=== PATIENT | female | born 1995 | race Caucasian/White ===

== ENCOUNTER 2017-02-28 13:02 | Emergency (ER) | payer MEDICAID, OTHER ==
[~2017-02-28] VITALS: Ht 157.5 cm; Wt 56.3 kg
[2017-02-28 13:26] VITALS: BP 113/65
--- NOTE | 2017-02-28 14:15 | NUR ---
Patient to bed 08.
--- NOTE | 2017-02-28 14:19 | NUR ---
Dr. Kohli evaluating patient at bedside.
--- NOTE | 2017-02-28 14:29 | NUR ---
PATIENT PRESENTS TO ED WITH c/o nasal congestion with sinus pain and throat discomfort;rhinorrhea x 4 days;DENIES N/V/D; SKIN IS PINK/WARM/DRY; AAOX4 WITH EVEN AND STEADY GAIT; PT DENIES ANY FEVER, CP, SOB, OR COUGH AT THIS TIME; PATIENT STATES PAIN OF 0/10 AT THIS TIME; VSS; PATIENT POSITIONED FOR COMFORT; HOB ELEVATED; BEDRAILS UP X2; BED DOWN.
[2017-02-28 14:35] VITALS: BP 121/76
--- NOTE | 2017-02-28 14:54 | NUR ---
Patient discharged with v/s stable. Written and verbal after care instructions given and explained. Patient alert, oriented and verbalized understanding of instructions. Ambulatory with steady gait. All questions addressed prior to discharge. ID band removed. Patient advised to follow up with PMD. Rx of PEPE MCDONALD given. Patient educated on indication of medication including possible reaction and side effects. Opportunity to ask questions provided and answered.
== END 2017-02-28 14:54 | disposition home or self-care (01) ==
LOC: MED 13:26
DX: J06.9 Acute upper respiratory infection, unspecified (principal)
CPT/HCPCS: 99283

== ENCOUNTER 2019-05-04 04:25 | Emergency (ER) | payer OTHER ==
[~2019-05-04] VITALS: Ht 154.9 cm; Wt 52.2 kg
[2019-05-04 04:30] VITALS: BP 116/76
--- NOTE | 2019-05-04 04:30 | NUR ---
TO BED # 04 AMBULATORY
--- NOTE | 2019-05-04 04:55 | NUR ---
Dr. Mendez examining patient.
--- NOTE | 2019-05-04 04:56 | NUR ---
PATIENT PRESENTS TO ED WITH SHE WOKE UP WITH HEADACHE, ON ANXIETY ATTACK. DENIES N/V/D; SKIN IS PINK/WARM/DRY; AAOX4 WITH EVEN AND STEADY GAIT; LUNGS CLEAR BL; HR EVEN AND REGULAR; PT DENIES ANY FEVER, SOB, OR COUGH AT THIS TIME; PATIENT STATES PAIN OF 3/10 AT THIS TIME; VSS; PATIENT POSITIONED FOR COMFORT; HOB ELEVATED; BEDRAILS UP X2; BED DOWN. ER MD MADE AWARE OF PT STATUS.
[2019-05-04 04:57] VITALS: BP 116/76
[2019-05-04] MEDS ORDERED: KETOROLAC 60 MG/2 ML VIAL IM ONE (05:05)
--- NOTE | 2019-05-04 05:12 | NUR ---
Patient discharged with v/s stable. Written and verbal after care instructions given and explained. Patient alert, oriented and verbalized understanding of instructions. Ambulatory with steady gait. All questions addressed prior to discharge. ID band removed. Patient advised to follow up with PMD. Rx of motrin and atarx given. Patient educated on indication of medication including possible reaction and side effects. Opportunity to ask questions provided and answered.
== END 2019-05-04 05:12 | disposition home or self-care (01) ==
LOC: MED 04:25
DX: F41.9 Anxiety disorder, unspecified (principal); R51 Headache; R07.0 Pain in throat; F32.9 Major depressive disorder, single episode, unspecified
CPT/HCPCS: 81002; 81025; 96372; 99283; J1885